=== PATIENT | female | born 1960 | race African-American/Black ===

== ENCOUNTER 2016-08-22 20:13 | Emergency (ER) | payer MEDICAID ==
[~2016-08-22] VITALS: Ht 165.1 cm; Wt 68.0 kg
[2016-08-22] MEDS ORDERED: IPRATROPIUM/ALBUTEROL 0.5-3(2.5)MG/3ML NEB HHN ONE (23:00)
[2016-08-22] MEDS ORDERED: ONDANSETRON 4MG ODT PO PRN (23:00)
[2016-08-22] MEDS ORDERED: PREDNISONE 20MG TABLET PO ONE (23:30)
[2016-08-22] MEDS ORDERED: HYDROCODONE/ACETAMINOPHEN 5/325MG TABLET PO ONE (23:30)
[2016-08-22] MEDS ORDERED: PREDNISONE 20MG TABLET PO NR (23:53)
[2016-08-23 00:38] VITALS: BP 130/65
== END 2016-08-23 00:39 | disposition home or self-care (01) ==
LOC: ER 20:13
DX: J44.1 Chronic obstructive pulmonary disease with (acute) exacerbation (principal); J45.909 Unspecified asthma, uncomplicated; M54.12 Radiculopathy, cervical region; F17.210 Nicotine dependence, cigarettes, uncomplicated; I10 Essential (primary) hypertension; Z98.890 Other specified postprocedural states; Z71.6 Tobacco abuse counseling
CPT/HCPCS: 71020; 94640; 99284; 99406; J7512; Q0162; J7620

== ENCOUNTER 2016-10-10 11:57 | Emergency (ER) | payer MEDICAID ==
[~2016-10-10] VITALS: Ht 165.1 cm; Wt 81.0 kg
[2016-10-10] MEDS ORDERED: ALBUTEROL (0.083%) 2.5MG/3ML NEB HHN STA (13:11)
[2016-10-10] MEDS ORDERED: PREDNISONE 20MG TABLET PO STA (13:11)
[2016-10-10] MEDS ORDERED: IPRATROPIUM BROMIDE (0.02%) 0.5MG/2.5ML NEB HHN STA (13:11)
[2016-10-10 15:01] VITALS: BP 118/73
== END 2016-10-10 15:02 | disposition home or self-care (01) ==
LOC: ER 13:37
DX: J45.901 Unspecified asthma with (acute) exacerbation (principal); R42 Dizziness and giddiness; I10 Essential (primary) hypertension; J98.4 Other disorders of lung; F17.200 Nicotine dependence, unspecified, uncomplicated
CPT/HCPCS: 71010; 94644; 99285; J7512; J7611; Z7610

== ENCOUNTER 2016-10-21 14:11 | Emergency (ER) | payer MEDICAID ==
[~2016-10-21] VITALS: Ht 165.1 cm; Wt 77.0 kg
[2016-10-21] MEDS ORDERED: DIAZEPAM 5 MG TABLET PO ONE (16:00)
[2016-10-21] MEDS ORDERED: HYDROCODONE/ACETAMINOPHEN 5/325MG TABLET PO ONE (16:00)
[2016-10-21 16:53] VITALS: BP 147/89
== END 2016-10-21 16:54 | disposition home or self-care (01) ==
LOC: ER 14:12
DX: M47.9 Spondylosis, unspecified (principal); G89.29 Other chronic pain; M54.9 Dorsalgia, unspecified; J45.909 Unspecified asthma, uncomplicated; I10 Essential (primary) hypertension; F17.210 Nicotine dependence, cigarettes, uncomplicated
CPT/HCPCS: 99283

== ENCOUNTER 2016-11-25 17:51 | Emergency (ER) | payer MEDICAID ==
[~2016-11-25] VITALS: Ht 165.1 cm; Wt 77.0 kg
[2016-11-25] MEDS ORDERED: KETOROLAC 60MG/2ML VIAL IM ONE (18:45)
[2016-11-25] MEDS ORDERED: LORAZEPAM 1MG TABLET PO ONE (21:00)
[2016-11-25 21:50] VITALS: BP 106/61
== END 2016-11-25 21:50 | disposition home or self-care (01) ==
LOC: ER 19:17
DX: M25.561 Pain in right knee (principal); M25.571 Pain in right ankle and joints of right foot; F41.0 Panic disorder [episodic paroxysmal anxiety]; J45.909 Unspecified asthma, uncomplicated; I10 Essential (primary) hypertension; F17.200 Nicotine dependence, unspecified, uncomplicated; Z98.890 Other specified postprocedural states
CPT/HCPCS: 73562; 73610; 73630; 96372; 99284; J1885

== ENCOUNTER 2017-03-17 16:10 | Emergency (ER) | payer MEDICAID ==
[~2017-03-17] VITALS: Ht 175.3 cm; Wt 73.0 kg
[2017-03-17] MEDS ORDERED: PREDNISONE 20MG TABLET PO STA (19:05)
[2017-03-17] MEDS ORDERED: IPRATROPIUM BROMIDE (0.02%) 0.5MG/2.5ML NEB HHN STA (19:05)
[2017-03-17] MEDS ORDERED: ALBUTEROL (0.083%) 2.5MG/3ML NEB HHN STA (19:05)
[2017-03-17] MEDS ORDERED: ACETAMINOPHEN 325MG TABLET PO ONE (19:15)
[2017-03-17 21:27] LABS: EOSINOPHILS % 4.4 % (0.0-5.0); HEMATOCRIT. 39.9 % (36.0-48.0); HEMOGLOBIN. 13.3 g/dL (12.0-16.0); LYMPHOCYTES % 23.1 % (20.0-50.0); MEAN CORPUSCULAR HEMOGLOBIN 32.3 pg (28.0-32.0); MEAN CORPUSCULAR VOLUME 96.6 fL (81.0-99.0); MONOCYTES % 7.2 % (2.0-8.0); NEUTROPHILS % 64.3 % (40.0-76.0); PLATELET 249 x1000/uL (130-400); RED BLOOD CELL COUNT 4.13 mill/uL (4.2-5.4)
[2017-03-17 21:38] LABS: INR 0.9; PROTHROMBIN TIME 9.8 sec (9.4-11.6)
[2017-03-17 21:43] LABS: CARBON DIOXIDE 28 mEq/L (21-32); CHLORIDE 111 mEq/L (98-107); TROPONIN I < 0.02 ng/mL (0.00-0.04)
[2017-03-17 21:49] LABS: CLARITY URINE CLEAR (CLEAR); COLOR URINE YELLOW (YELLOW); GLUCOSE URINE NEGATIVE (NEGATIVE); KETONES URINE NEGATIVE (NEGATIVE); LEUKOCYTE ESTERASE URINE 2+ (NEGATIVE); NITRITE URINE NEGATIVE (NEGATIVE); OCCULT BLOOD URINE NEGATIVE (NEGATIVE); PH URINE 5.5 (4.5-8.0); PROTEIN URINE NEGATIVE (NEGATIVE); SPECIFIC GRAVITY URINE 1.021 (1.005-1.030)
[2017-03-17 22:35] VITALS: BP 122/69
== END 2017-03-17 22:35 | disposition home or self-care (01) ==
LOC: ER 16:22
DX: J45.901 Unspecified asthma with (acute) exacerbation (principal); M25.561 Pain in right knee; M25.562 Pain in left knee; N39.0 Urinary tract infection, site not specified; I51.7 Cardiomegaly; I11.9 Hypertensive heart disease without heart failure; Z98.890 Other specified postprocedural states
CPT/HCPCS: 36415; 71010; 80053; 81001; 83880; 84484; 85025; 85610; 93005; 94640; 99285; J7512; J7611; Z7610

== ENCOUNTER 2019-09-14 14:54 | Emergency (ER) | payer MEDICAID ==
[~2019-09-14] VITALS: Ht 165.1 cm; Wt 62.0 kg
[~2019-09-14 14:54] MED LIST: DULO30CA2 PO; GABA-290 PO; NAPR-681 PO
[2019-09-14] MEDS ORDERED: MORPHINE SULFATE 4 MG/ML CPJ (NOT FOR IM USE) IV STA (18:06)
[2019-09-14] MEDS ORDERED: ONDANSETRON HCL 4MG/2ML INJ IV STA (18:06)
[2019-09-14] MEDS ORDERED: SODIUM CHLORIDE 0.9% 1,000 ML IV ONE (18:06)
[2019-09-14 18:51] LABS: BASOPHILS % 0.5 % (0.0-2.0); EOSINOPHILS % 2.1 % (0.0-5.0); HEMATOCRIT. 44.7 % (36.0-48.0); HEMOGLOBIN. 15.1 g/dL (12.0-16.0); LYMPHOCYTES % 21.7 % (20.0-50.0); MEAN CORPUSCULAR HEMOGLOBIN 32.4 pg (28.0-32.0); MEAN CORPUSCULAR VOLUME 95.7 fL (81.0-99.0); MEAN PLATELET VOLUME 8.2 fl (7.4-10.4); MONOCYTES % 11.5 % (2.0-8.0); NEUTROPHILS % 64.2 % (40.0-76.0); PLATELET 312 x1000/uL (130-400); RED BLOOD CELL COUNT 4.67 mill/uL (4.2-5.4); RED CELL DISTRIBUTION WIDTH 15.7 % (11.6-14.6)
[2019-09-14 18:57] LABS: CHLORIDE 104 mEq/L (98-107)
[2019-09-14 20:19] LABS: CLARITY URINE TURBID (CLEAR); COLOR URINE DK YELLOW (YELLOW); KETONES URINE 1+ (NEGATIVE); LEUKOCYTE ESTERASE URINE TRACE (NEGATIVE); NITRITE URINE NEGATIVE (NEGATIVE); OCCULT BLOOD URINE NEGATIVE (NEGATIVE); PROTEIN URINE NEGATIVE (NEGATIVE); SPECIFIC GRAVITY URINE 1.027 (1.005-1.030)
[2019-09-14] MEDS ORDERED: KETOROLAC 30MG/ML VIAL IV NR (22:00)
[2019-09-14] MEDS ORDERED: MAGNESIUM CITRATE 300ML SOLUTION PO NR (22:00)
[2019-09-14] MEDS ORDERED: CEFTRIAXONE 1 G PREMIX 50 ML IV NR (23:30)
[2019-09-14] MEDS ORDERED: CEFTRIAXONE SODIUM 1 G/VIAL IM ONE (23:30)
[2019-09-15 11:01] VITALS: BP 132/78
== END 2019-09-15 11:08 | disposition home or self-care (01) ==
LOC: ER 14:54
DX: K59.00 Constipation, unspecified (principal); N39.0 Urinary tract infection, site not specified; I10 Essential (primary) hypertension; F98.8 Other specified behavioral and emotional disorders with onset usually occurring in childhood and adolescence; Z96.641 Presence of right artificial hip joint; Z59.0 Homelessness; Z75.1 Person awaiting admission to adequate facility elsewhere
CPT/HCPCS: 36415; 74021; 80053; 81003; 83690; 84484; 85025; 93971; 96361; 96365; 96375; 99285; J0696; J1885; J2270; J2405; J7030

== ENCOUNTER 2019-10-15 09:08 | Emergency (ER) | payer MEDICAID ==
[~2019-10-15] VITALS: Ht 165.1 cm; Wt 60.0 kg
[2019-10-15 10:45] LABS: BASOPHILS % 0.7 % (0.0-2.0); EOSINOPHILS % 2.4 % (0.0-5.0); HEMATOCRIT. 45.7 % (36.0-48.0); HEMOGLOBIN. 15.4 g/dL (12.0-16.0); LYMPHOCYTES % 17.2 % (20.0-50.0); MEAN CORPUSCULAR HEMOGLOBIN 32.6 pg (28.0-32.0); MEAN CORPUSCULAR VOLUME 97.1 fL (81.0-99.0); MONOCYTES % 5.8 % (2.0-8.0); NEUTROPHILS % 73.9 % (40.0-76.0); PLATELET 321 x1000/uL (130-400); RED BLOOD CELL COUNT 4.71 mill/uL (4.2-5.4); RED CELL DISTRIBUTION WIDTH 15.5 % (11.6-14.6)
[2019-10-15] MEDS ORDERED: OXYCODONE HCL/ACETAMINOPHEN 5/325MG TABLET PO ONE (10:45)
[2019-10-15 10:51] LABS: CHLORIDE 104 mEq/L (98-107)
[2019-10-15 11:27] VITALS: BP 128/82
== END 2019-10-15 11:48 | disposition home or self-care (01) ==
LOC: ER 09:08
DX: G89.29 Other chronic pain (principal); M79.661 Pain in right lower leg; E11.9 Type 2 diabetes mellitus without complications; I10 Essential (primary) hypertension; Z96.649 Presence of unspecified artificial hip joint
CPT/HCPCS: 36415; 71045; 80053; 85025; 93005; 99285

== ENCOUNTER 2020-05-27 21:32 | Inpatient (IN) | payer MEDICAID, OTHER ==
[~2020-05-27] VITALS: Ht 165.1 cm; Wt 61.2 kg
[2020-05-27] MEDS ORDERED: NITROGLYCERIN 0.4MG TABLET SL SL PRN (23:00)
[2020-05-27] MEDS ORDERED: ASPIRIN 81MG TABLET PO ONE (23:00)
[2020-05-28 00:47] LABS: BASOPHILS % 0.5 % (0.0-2.0); CHLORIDE 109 mEq/L (98-107); EOSINOPHILS % 3.1 % (0.0-5.0); HEMATOCRIT. 43.2 % (36.0-48.0); HEMOGLOBIN. 14.4 g/dL (12.0-16.0); LYMPHOCYTES % 12.2 % (20.0-50.0); MEAN CORPUSCULAR HEMOGLOBIN 32.4 pg (28.0-32.0); MEAN CORPUSCULAR VOLUME 97.1 fL (81.0-99.0); MEAN PLATELET VOLUME 8.5 fl (7.4-10.4); MONOCYTES % 8.7 % (2.0-8.0); NEUTROPHILS % 75.5 % (40.0-76.0); PLATELET 286 x1000/uL (130-400); RED BLOOD CELL COUNT 4.45 mill/uL (4.2-5.4); RED CELL DISTRIBUTION WIDTH 15.5 % (11.6-14.6)
[2020-05-28 00:55] LABS: D-DIMER 0.76 mg/L FEU (<0.50); PARTIAL THROMBOPLASTIN TIME 25.7 sec (23.4-31.0); PROTHROMBIN TIME 10.1 sec (9.6-11.0)
[2020-05-28] MEDS ORDERED: ASPIRIN 81MG TABLET ONE (02:31)
[2020-05-28] MEDS ORDERED: IOHEXOL-350 100 ML BOTTLE ONE (05:34)
[2020-05-28] MEDS ORDERED: ONDANSETRON HCL 4MG/2ML INJ IV PRN (10:30)
[2020-05-28] MEDS ORDERED: ACETAMINOPHEN 325MG TABLET PO PRN (10:30)
[2020-05-28 11:44] VITALS: BP 144/70
[2020-05-28 12:00] VITALS: BP 140/70
[2020-05-28 14:00] VITALS: BP 156/65
[2020-05-28 16:00] VITALS: BP 143/80
[2020-05-28 16:23] LABS: LDL CHOLESTEROL 58 mg/dL (5-100)
[2020-05-28 16:25] LABS: HDL CHOLESTEROL 60 mg/dL (40-59)
[2020-05-28] MEDS: KETOROLAC 15MG/ML VIAL IV PRN (17:02)
[2020-05-28 18:00] VITALS: BP 160/82
[2020-05-28 20:00] VITALS: BP 138/65
[2020-05-29] VITALS (8 sets, daily range): BP systolic 109–147; BP diastolic 63–81
[2020-05-29 00:17] LABS: CLARITY URINE CLEAR (CLEAR); COLOR URINE DARK YELLOW (YELLOW); KETONES URINE TRACE (NEGATIVE); LEUKOCYTE ESTERASE URINE NEGATIVE (NEGATIVE); NITRITE URINE NEGATIVE (NEGATIVE); OCCULT BLOOD URINE NEGATIVE (NEGATIVE); PROTEIN URINE TRACE (NEGATIVE); SPECIFIC GRAVITY URINE 1.037 (1.005-1.030)
[2020-05-29 00:33] LABS: *BARBITURATES SCREEN URINE NEGATIVE (NEGATIVE); *BENZODIAZEPINES SCREEN URINE NEGATIVE (NEGATIVE)
[2020-05-29 00:34] LABS: *AMPHETAMINES SCREEN URINE NEGATIVE (NEGATIVE); *COCAINE SCREEN URINE PRESUMTIVE POSITIVE (NEGATIVE); CANNABINOID URINE SCREEN PRESUMTIVE POSITIVE (NEGATIVE); METHADONE URINE SCREEN NEGATIVE (NEGATIVE); OPIATES URINE SCREEN NEGATIVE (NEGATIVE); PHENCYCLIDINE URINE SCREEN NEGATIVE (NEGATIVE)
[2020-05-29] MEDS: KETOROLAC 15MG/ML VIAL IV PRN (01:53)
[2020-05-29] MEDS: TRAMADOL 50MG TABLET PO PRN ×3 (07:44→23:32)
[2020-05-29] MEDS: ASPIRIN 81MG TABLET PO SCH (08:21)
[2020-05-29] MEDS: IPRATROPIUM/ALBUTEROL 0.5-3(2.5)MG/3ML NEB HHN SCH ×3 (08:46→21:31)
[2020-05-30 02:00] VITALS: BP 153/72
[2020-05-30] MEDS: IPRATROPIUM/ALBUTEROL 0.5-3(2.5)MG/3ML NEB HHN SCH ×4 (02:52→20:50)
[2020-05-30 04:00] VITALS: BP 122/67
[2020-05-30 08:00] VITALS: BP 122/70
[2020-05-30] MEDS: ASPIRIN 81MG TABLET PO SCH (09:29)
[2020-05-30 12:00] VITALS: BP 135/82
[2020-05-30 16:00] VITALS: BP 136/59
[2020-05-30 20:00] VITALS: BP 128/67
[2020-05-31] VITALS: BP 135/58
[2020-05-31] MEDS: IPRATROPIUM/ALBUTEROL 0.5-3(2.5)MG/3ML NEB HHN SCH ×4 (02:23→20:49)
[2020-05-31] MEDS: TRAMADOL 50MG TABLET PO PRN (03:23)
[2020-05-31 04:00] VITALS: BP 129/73
[2020-05-31 08:00] VITALS: BP 140/70
[2020-05-31] MEDS: ASPIRIN 81MG TABLET PO SCH (09:10)
[2020-05-31 12:00] VITALS: BP_SYST 128; BP_SYST 138; BP_DIAS 62; BP_DIAS 89
[2020-05-31 16:00] VITALS: BP 128/62
[2020-05-31] MEDS: LORAZEPAM 2MG/ML CPJ IV PRN (17:34)
[2020-05-31 18:15] LABS: *AMPHETAMINES SCREEN URINE NEGATIVE (NEGATIVE); *BARBITURATES SCREEN URINE NEGATIVE (NEGATIVE); *BENZODIAZEPINES SCREEN URINE NEGATIVE (NEGATIVE); *COCAINE SCREEN URINE NEGATIVE (NEGATIVE); METHADONE URINE SCREEN NEGATIVE (NEGATIVE)
[2020-05-31 18:16] LABS: CANNABINOID URINE SCREEN NEGATIVE (NEGATIVE); PHENCYCLIDINE URINE SCREEN NEGATIVE (NEGATIVE)
[2020-05-31 18:25] LABS: OPIATES URINE SCREEN NEGATIVE (NEGATIVE)
[2020-05-31 20:00] VITALS: BP 108/62
[2020-06-01] VITALS: BP 121/65
[2020-06-01] MEDS: IPRATROPIUM/ALBUTEROL 0.5-3(2.5)MG/3ML NEB HHN SCH ×4 (01:19→21:13)
[2020-06-01 04:00] VITALS: BP 105/65
[2020-06-01 08:00] VITALS: BP 121/68
[2020-06-01] MEDS: ASPIRIN 81MG TABLET PO SCH (08:41)
[2020-06-01] MEDS: LORAZEPAM 2MG/ML CPJ IV PRN ×3 (08:41→19:48)
[2020-06-01 12:00] VITALS: BP 124/75
[2020-06-01 16:00] VITALS: BP 116/68
[2020-06-01 21:17] VITALS: BP 109/73
[2020-06-01] MEDS: HALOPERIDOL LACTATE 5MG/ML VIAL IM PRN (22:11)
[2020-06-02] VITALS: BP_SYST 108; BP_SYST 153; BP_DIAS 63; BP_DIAS 86
[2020-06-02] MEDS: IPRATROPIUM/ALBUTEROL 0.5-3(2.5)MG/3ML NEB HHN SCH ×3 (02:09→14:40)
[2020-06-02 04:00] VITALS: BP 120/66
[2020-06-02 08:00] VITALS: BP 98/50
[2020-06-02] MEDS: HALOPERIDOL LACTATE 5MG/ML VIAL IM PRN (08:43)
[2020-06-02] MEDS: ASPIRIN 81MG TABLET PO SCH (08:43)
[2020-06-02] MEDS: LORAZEPAM 2MG/ML CPJ IV PRN ×2 (11:21→16:02)
[2020-06-02] MEDS ORDERED: ALBU18HF2 IH (12:57)
[2020-06-02] MEDS ORDERED: FLUT1DIS3 INH (12:58)
[2020-06-02 19:56] LABS: LDL CHOLESTEROL 70 mg/dL (5-100)
[2020-06-02 19:58] LABS: HDL CHOLESTEROL 59 mg/dL (40-59)
[2020-06-02 19:59] LABS: T4 FREE 0.82 ng/dL (0.76-1.46)
[2020-06-02 20:00] VITALS: BP 125/70
[2020-06-03] VITALS: BP 125/70
[2020-06-03 04:00] VITALS: BP 105/70
[2020-06-03 08:00] VITALS: BP 113/68
[2020-06-03] MEDS: ASPIRIN 81MG TABLET PO SCH (08:11)
[2020-06-03] MEDS: IPRATROPIUM/ALBUTEROL 0.5-3(2.5)MG/3ML NEB HHN SCH ×2 (08:12→14:10)
[2020-06-03] MEDS: LORAZEPAM 2MG/ML CPJ IV PRN ×2 (08:32→13:30)
[2020-06-03 12:00] VITALS: BP 134/77
[2020-06-03 16:00] VITALS: BP 102/63
== END 2020-06-03 18:00 | disposition left against medical advice (07) | DRG 203 ==
LOC: ER 21:32 → 5EST 05-28 01:23 → CANRESERV 05-28 07:56 → ENRESERV 05-28 07:56 → 6EST 05-30 13:13
PROVIDERS: ADMIT Internal Medicine; ATTEND Internal Medicine
DX: M94.0 Chondrocostal junction syndrome [Tietze] (principal); E87.8 Other disorders of electrolyte and fluid balance, not elsewhere classified; I10 Essential (primary) hypertension; E11.9 Type 2 diabetes mellitus without complications; F12.90 Cannabis use, unspecified, uncomplicated; Z96.649 Presence of unspecified artificial hip joint; F17.210 Nicotine dependence, cigarettes, uncomplicated; F14.90 Cocaine use, unspecified, uncomplicated; J43.8 Other emphysema; F10.10 Alcohol abuse, uncomplicated; Y90.9 Presence of alcohol in blood, level not specified; Z99.3 Dependence on wheelchair; Z71.6 Tobacco abuse counseling; Z86.73 Personal history of transient ischemic attack (TIA), and cerebral infarction without residual deficits; Z79.1 Long term (current) use of non-steroidal anti-inflammatories (NSAID); Z79.899 Other long term (current) drug therapy
CPT/HCPCS: 36415; 71045; 71275; 80053; 80061; 80305; 81003; 83036; 83880; 84439; 84443; 84484; 85025; 85379; 93005; 93306; 93970; 97116; 97162; 97530; 99285; C1893; J1630; J1885; J2060; Q9967

== ENCOUNTER 2020-07-22 22:08 | Inpatient (IN) | payer OTHER ==
[~2020-07-22] VITALS: Ht 165.1 cm; Wt 63.5 kg
[~2020-07-22 22:08] MED LIST changes: +ALBU18HF2 IH; +FLUT1DIS3 INH
[2020-07-22] MEDS ORDERED: MORPHINE SULFATE 4 MG/ML CPJ (NOT FOR IM USE) IV ONE (23:15)
[2020-07-22] MEDS ORDERED: ONDANSETRON HCL 4MG/2ML INJ IV ONE (23:15)
[2020-07-22] MEDS ORDERED: SODIUM CHLORIDE 0.9% 1,000 ML IV ONE (23:15)
[2020-07-22 23:30] LABS: BASOPHILS % 0.7 % (0.0-2.0); EOSINOPHILS % 3.1 % (0.0-5.0); HEMATOCRIT. 43.9 % (36.0-48.0); HEMOGLOBIN. 14.8 g/dL (12.0-16.0); LYMPHOCYTES % 18.7 % (20.0-50.0); MEAN CORPUSCULAR HEMOGLOBIN 33.4 pg (28.0-32.0); MEAN CORPUSCULAR VOLUME 99.1 fL (81.0-99.0); MEAN PLATELET VOLUME 8.3 fl (7.4-10.4); MONOCYTES % 7.8 % (2.0-8.0); NEUTROPHILS % 69.7 % (40.0-76.0); PLATELET 220 x1000/uL (130-400); RED BLOOD CELL COUNT 4.43 mill/uL (4.2-5.4); RED CELL DISTRIBUTION WIDTH 14.3 % (11.6-14.6)
[2020-07-22 23:38] LABS: CHLORIDE 112 mEq/L (98-107)
[2020-07-22] MEDS ORDERED: DOXYCYCLINE HYCLATE 100MG CAPSULE PO ONE (23:45)
[2020-07-22] MEDS ORDERED: CEFTRIAXONE SODIUM 500 MG/VIAL IM ONE (23:45)
[2020-07-23] MEDS ORDERED: DIPHENHYDRAMINE 50MG/ML VIAL IV ONE
[2020-07-23 01:27] LABS: CLARITY URINE CLEAR (CLEAR); COLOR URINE YELLOW (YELLOW); KETONES URINE NEGATIVE (NEGATIVE); LEUKOCYTE ESTERASE URINE NEGATIVE (NEGATIVE); NITRITE URINE NEGATIVE (NEGATIVE); OCCULT BLOOD URINE NEGATIVE (NEGATIVE); PH URINE 6.5 (4.5-8.0); PROTEIN URINE NEGATIVE (NEGATIVE); SPECIFIC GRAVITY URINE 1.031 (1.005-1.030)
[2020-07-23] MEDS ORDERED: ONDANSETRON HCL 4MG/2ML INJ IV PRN (08:15)
[2020-07-23 09:00] VITALS: BP 137/80
[2020-07-23 12:00] VITALS: BP_SYST 128; BP_SYST 158; BP_DIAS 72; BP_DIAS 75
[2020-07-23 12:27] VITALS: BP 158/75
[2020-07-23 16:00] VITALS: BP 131/71
[2020-07-23] MEDS ORDERED: IPRATROPIUM/ALBUTEROL 0.5-3(2.5)MG/3ML NEB HHN PRN (19:30)
[2020-07-23 20:00] VITALS: BP 155/63
[2020-07-23] MEDS: CLOTRIMAZOLE 1% VAGINAL CREAM 45GM VG SCH (20:23)
[2020-07-24 01:30] VITALS: BP 124/68
[2020-07-24 04:00] VITALS: BP 152/65
[2020-07-24 08:00] VITALS: BP 156/78
[2020-07-24 12:00] VITALS: BP 160/80
[2020-07-24] MEDS ORDERED: CLONIDINE 0.1MG TABLET PO PRN (12:45)
[2020-07-24] MEDS: METRONIDAZOLE 500MG TABLET PO SCH ×2 (13:19→21:34)
[2020-07-24 16:00] VITALS: BP 122/74
[2020-07-24 20:00] VITALS: BP 146/67
[2020-07-24] MEDS: CLOTRIMAZOLE 1% VAGINAL CREAM 45GM VG SCH (21:38)
[2020-07-24] MEDS: ACETAMINOPHEN 325MG TABLET PO PRN (21:38)
[2020-07-25] VITALS: BP 127/76
[2020-07-25] MEDS: GABAPENTIN 300MG CAPSULE PO SCH ×4 (02:50→20:34)
[2020-07-25 04:00] VITALS: BP 130/70
[2020-07-25 08:00] VITALS: BP 135/71
[2020-07-25] MEDS: DULOXETINE HCL 30MG DR CAPSULE PO SCH (09:15)
[2020-07-25] MEDS: METRONIDAZOLE 500MG TABLET PO SCH ×2 (09:15→20:34)
[2020-07-25 12:00] VITALS: BP 130/76
[2020-07-25 16:00] VITALS: BP 140/73
[2020-07-25 20:00] VITALS: BP 144/82
[2020-07-25] MEDS: CLOTRIMAZOLE 1% VAGINAL CREAM 45GM VG SCH (20:35)
[2020-07-26] VITALS: BP 140/80
[2020-07-26 04:07] LABS: NEISSERIA GONORRHOEAE NAA Negative (Negative)
[2020-07-26 08:00] VITALS: BP 140/81
[2020-07-26] MEDS: DULOXETINE HCL 30MG DR CAPSULE PO SCH (08:40)
[2020-07-26] MEDS: GABAPENTIN 300MG CAPSULE PO SCH ×3 (08:41→21:59)
[2020-07-26] MEDS: METRONIDAZOLE 500MG TABLET PO SCH ×2 (08:41→21:59)
[2020-07-26 12:00] VITALS: BP 138/78
[2020-07-26 16:00] VITALS: BP 133/78
[2020-07-26 20:00] VITALS: BP 150/75
[2020-07-26] MEDS: CLOTRIMAZOLE 1% VAGINAL CREAM 45GM VG SCH (21:59)
[2020-07-27] VITALS: BP 142/68
[2020-07-27] MEDS: GABAPENTIN 300MG CAPSULE PO SCH ×4 (03:13→21:37)
[2020-07-27 04:00] VITALS: BP 135/72
[2020-07-27] MEDS: METRONIDAZOLE 500MG TABLET PO SCH ×2 (10:50→21:37)
[2020-07-27] MEDS: DULOXETINE HCL 30MG DR CAPSULE PO SCH (10:50)
[2020-07-27 17:08] VITALS: BP 139/71
[2020-07-27 20:00] VITALS: BP 134/64
[2020-07-27] MEDS: CLOTRIMAZOLE 1% VAGINAL CREAM 45GM VG SCH (21:38)
[2020-07-27] MEDS: ACETAMINOPHEN 325MG TABLET PO PRN (21:38)
[2020-07-28] VITALS: BP 116/65
[2020-07-28] MEDS: GABAPENTIN 300MG CAPSULE PO SCH ×4 (03:22→21:12)
[2020-07-28 04:00] VITALS: BP 132/75
[2020-07-28 08:00] VITALS: BP 138/82
[2020-07-28] MEDS: METRONIDAZOLE 500MG TABLET PO SCH ×2 (08:35→21:12)
[2020-07-28] MEDS: DULOXETINE HCL 30MG DR CAPSULE PO SCH (08:35)
[2020-07-28 12:00] VITALS: BP 147/89
[2020-07-28 16:00] VITALS: BP 129/70
[2020-07-28 20:00] VITALS: BP 149/76
[2020-07-28] MEDS: CLOTRIMAZOLE 1% VAGINAL CREAM 45GM VG SCH (21:13)
[2020-07-28] MEDS: ACETAMINOPHEN 325MG TABLET PO PRN (21:23)
[2020-07-29] MEDS: GABAPENTIN 300MG CAPSULE PO SCH ×4 (03:00→22:17)
[2020-07-29 08:00] VITALS: BP 139/83
[2020-07-29] MEDS: METRONIDAZOLE 500MG TABLET PO SCH (08:57)
[2020-07-29] MEDS: DULOXETINE HCL 30MG DR CAPSULE PO SCH (08:57)
[2020-07-29] MEDS ORDERED: LIDOCAINE HCL 1% 20ML VIAL (Pyxis) INJ INFIL SCH (10:00)
[2020-07-29 12:00] VITALS: BP 140/78
[2020-07-29 16:00] VITALS: BP 127/72
[2020-07-29] MEDS: CLOTRIMAZOLE 1% VAGINAL CREAM 45GM VG SCH (22:18)
[2020-07-30] MEDS: GABAPENTIN 300MG CAPSULE PO SCH ×4 (03:00→21:31)
[2020-07-30 08:00] VITALS: BP 144/78
[2020-07-30] MEDS: DULOXETINE HCL 30MG DR CAPSULE PO SCH (08:39)
[2020-07-30 12:00] VITALS: BP 115/65
[2020-07-30 16:00] VITALS: BP 138/73
[2020-07-30 20:00] VITALS: BP 132/70
[2020-07-31] VITALS: BP 128/64
[2020-07-31] MEDS: GABAPENTIN 300MG CAPSULE PO SCH ×2 (03:47→09:23)
[2020-07-31 04:00] VITALS: BP 136/74
[2020-07-31 07:52] VITALS: BP 121/68
[2020-07-31 08:02] VITALS: BP 121/68
[2020-07-31] MEDS: DULOXETINE HCL 30MG DR CAPSULE PO SCH (09:23)
== END 2020-07-31 11:20 | disposition home or self-care (01) | DRG 951 ==
LOC: ER 22:08 → 6EST 07-23 00:33 → EDBEDREQ 07-23 00:55 → EDBEDREQTM 07-23 00:55 → ENRESERV 07-23 09:09
PROVIDERS: ADMIT Internal Medicine; ATTEND Internal Medicine
PROC: 0KCV0ZZ Extirpation of Matter from Right Foot Muscle, Open Approach (ICD-10-PCS; principal; 2020-07-29)
DX: K85.90 Acute pancreatitis without necrosis or infection, unspecified (principal); W45.8XXA Other foreign body or object entering through skin, initial encounter; E87.8 Other disorders of electrolyte and fluid balance, not elsewhere classified; T19.2XXA Foreign body in vulva and vagina, initial encounter; J44.9 Chronic obstructive pulmonary disease, unspecified; F12.90 Cannabis use, unspecified, uncomplicated; F17.210 Nicotine dependence, cigarettes, uncomplicated; B37.3 Candidiasis of vulva and vagina; M48.00 Spinal stenosis, site unspecified; Z96.649 Presence of unspecified artificial hip joint; R26.89 Other abnormalities of gait and mobility; L85.9 Epidermal thickening, unspecified; X58.XXXA Exposure to other specified factors, initial encounter; Z99.3 Dependence on wheelchair; Z71.6 Tobacco abuse counseling; Z59.0 Homelessness; Y93.89 Activity, other specified; Y92.89 Other specified places as the place of occurrence of the external cause; Y99.8 Other external cause status
CPT/HCPCS: 36415; 71045; 73630; 74176; 80053; 81003; 85025; 87070; 87075; 87077; 87186; 87210; 87491; 87591; 93005; 97116; 97162; 97530; 99285; J0696; J1200; J2270; J2405; J3490; J7030; U0003

== ENCOUNTER 2020-10-14 13:03 | Emergency (ER) | payer MEDICAID, OTHER ==
[~2020-10-14] VITALS: Ht 165.1 cm; Wt 73.0 kg
[2020-10-14] MEDS ORDERED: ACETAMINOPHEN 500MG TABLET PO ONE (14:00)
[2020-10-14 14:40] LABS: CLARITY URINE CLEAR (CLEAR); COLOR URINE YELLOW (YELLOW); KETONES URINE TRACE (NEGATIVE); LEUKOCYTE ESTERASE URINE NEGATIVE (NEGATIVE); NITRITE URINE NEGATIVE (NEGATIVE); OCCULT BLOOD URINE NEGATIVE (NEGATIVE); PROTEIN URINE TRACE (NEGATIVE); SPECIFIC GRAVITY URINE 1.024 (1.005-1.030)
[2020-10-14] MEDS ORDERED: DOXY100C2 MT (14:53)
[2020-10-14] MEDS ORDERED: ACET-2708 MT (14:53)
[2020-10-14] MEDS ORDERED: METR500T MT (14:53)
[2020-10-14] MEDS ORDERED: DOXYCYCLINE HYCLATE 100MG CAPSULE PO ONE (15:00)
[2020-10-14] MEDS ORDERED: CEFTRIAXONE SODIUM 500 MG/VIAL IM ONE (15:00)
[2020-10-14 15:27] VITALS: BP 153/84
[2020-10-17 04:07] LABS: NEISSERIA GONORRHOEAE NAA Negative (Negative)
== END 2020-10-14 15:28 | disposition home or self-care (01) ==
LOC: ER 13:03
DX: N76.0 Acute vaginitis (principal); F12.10 Cannabis abuse, uncomplicated; J45.909 Unspecified asthma, uncomplicated; I10 Essential (primary) hypertension; Z79.899 Other long term (current) drug therapy; Z96.649 Presence of unspecified artificial hip joint
CPT/HCPCS: 81003; 87210; 87491; 87591; 96372; 99283; J0696; Z7610

== ENCOUNTER 2021-02-27 03:53 | Emergency (ER) | payer MEDICAID ==
[~2021-02-27] VITALS: Ht 165.1 cm; Wt 75.0 kg
[~2021-02-27 03:53] MED LIST changes: +ACET-2708 MT; +DOXY100C2 MT; +LACT1CAP77 PO; +METR-167 PO; -NAPR-681 PO
[2021-02-27] MEDS ORDERED: IBUPROFEN 600MG TABLET PO STA (05:03)
[2021-02-27 05:39] VITALS: BP 137/72
[2021-02-27] MEDS ORDERED: P50 PO (05:39)
[2021-02-27] MEDS ORDERED: ACET-2708 PO (05:39)
[2021-02-27] MEDS ORDERED: DIPH25CA83 PO (05:39)
[2021-02-27] MEDS ORDERED: HYDR-4622 TP (05:39)
[2021-02-27] MEDS ORDERED: AZIT250T12 MT (05:39)
== END 2021-02-27 06:23 | disposition home or self-care (01) ==
LOC: ER 04:48
DX: R05 Cough (principal); R43.9 Unspecified disturbances of smell and taste; J45.909 Unspecified asthma, uncomplicated; I10 Essential (primary) hypertension; Z20.822 Contact with and (suspected) exposure to COVID-19
CPT/HCPCS: 71045; 99283

== ENCOUNTER 2021-05-19 21:05 | Emergency (ER) | payer MEDICAID, OTHER ==
[~2021-05-19] VITALS: Ht 165.1 cm; Wt 73.0 kg
[~2021-05-19 21:05] MED LIST changes: +ACET-2708 PO; +AZIT250T12 MT; +DIPH25CA83 PO; -DOXY100C2 MT; +DOXY100C5 MT; +HYDR-4622 TP; +P50 PO
[2021-05-19] MEDS ORDERED: IBUPROFEN 400MG TABLET PO ONE (22:15)
[2021-05-19] MEDS ORDERED: ACETAMINOPHEN 325MG TABLET PO ONE (22:15)
[2021-05-19] MEDS ORDERED: LIDOCAINE 5% PATCH TOP SCH (22:15)
[2021-05-19] MEDS ORDERED: ACETAMINOPHEN 325MG TABLET PO NR (22:30)
[2021-05-19] MEDS ORDERED: IBUPROFEN 400MG TABLET PO NR (22:30)
[2021-05-20 05:37] VITALS: BP 107/60
== END 2021-05-20 08:32 | disposition home or self-care (01) ==
LOC: ER 21:05
DX: G89.29 Other chronic pain (principal); M54.9 Dorsalgia, unspecified; I10 Essential (primary) hypertension; Z59.00 Homelessness unspecified; Z79.899 Other long term (current) drug therapy
CPT/HCPCS: 99283

== ENCOUNTER 2021-05-25 10:23 | Inpatient (IN) | payer OTHER ==
[~2021-05-25] VITALS: Ht 170.2 cm; Wt 55.3 kg
[2021-05-25] MEDS ORDERED: SODIUM CHLORIDE 0.9% 1,000 ML IV ONE (11:00)
[2021-05-25 11:18] LABS: CHLORIDE 105 mEq/L (98-107)
[2021-05-25 11:21] LABS: BASOPHILS % 0.5 % (0.0-2.0); EOSINOPHILS % 1.3 % (0.0-5.0); HEMATOCRIT. 40.9 % (36.0-48.0); HEMOGLOBIN. 13.8 g/dL (12.0-16.0); LYMPHOCYTES % 10.5 % (20.0-50.0); MEAN CORPUSCULAR HEMOGLOBIN 33.3 pg (28.0-32.0); MEAN CORPUSCULAR VOLUME 98.9 fL (81.0-99.0); MONOCYTES % 9.7 % (2.0-8.0); PLATELET 399 x1000/uL (130-400); RED BLOOD CELL COUNT 4.13 mill/uL (4.2-5.4)
[2021-05-25 12:05] LABS: CLARITY URINE CLEAR (CLEAR); COLOR URINE YELLOW (YELLOW); KETONES URINE TRACE (NEGATIVE); LEUKOCYTE ESTERASE URINE NEGATIVE (NEGATIVE); NITRITE URINE NEGATIVE (NEGATIVE); OCCULT BLOOD URINE NEGATIVE (NEGATIVE); PROTEIN URINE TRACE (NEGATIVE); SPECIFIC GRAVITY URINE 1.018 (1.005-1.030)
[2021-05-25] MEDS ORDERED: DEXTROSE 50% WATER 50ML SYRINGE IV ONE (12:30)
[2021-05-25] MEDS ORDERED: SODIUM POLYSTYRENE SULFONATE 15 G/60 ML BOT PO ONE (12:30)
[2021-05-25] MEDS ORDERED: ALBUTEROL (0.083%) 2.5MG/3ML NEB HHN ONE (12:30)
[2021-05-25] MEDS ORDERED: INSULIN REGULAR (HUMULIN R) 300UNITS/3ML VIAL IV ONE (12:30)
[2021-05-25] MEDS ORDERED: CEFTRIAXONE 1 G PREMIX 50 ML IV ONE (13:00)
[2021-05-25] MEDS: AZITHROMYCIN 500 MG in DEXT 5% WATER 250 ML IV SCH (13:00)
[2021-05-25 22:42] VITALS: BP 141/75
[2021-05-26] MEDS ORDERED: DEXTROSE 50% WATER 50ML SYRINGE IV PRN (00:15)
[2021-05-26] MEDS ORDERED: NALOXONE HCL 0.4MG/ML VIAL IV PRN (00:30)
[2021-05-26] MEDS: PHENYTOIN SODIUM EXTENDED 100MG CAPSULE PO SCH ×3 (01:02→17:19)
[2021-05-26] MEDS: HYDROCODONE/ACETAMINOPHEN 5/325MG TABLET PO PRN ×3 (01:02→21:43)
[2021-05-26] MEDS ORDERED: PHEN100C4 MT (01:19)
[2021-05-26] MEDS ORDERED: GABA-532 MT (01:19)
[2021-05-26 06:36] LABS: BASOPHILS % 0.6 % (0.0-2.0); HEMATOCRIT. 36.1 % (36.0-48.0); LYMPHOCYTES % 19.7 % (20.0-50.0); MEAN CORPUSCULAR HEMOGLOBIN 33.3 pg (28.0-32.0); MEAN CORPUSCULAR VOLUME 100.1 fL (81.0-99.0); MEAN PLATELET VOLUME 9.1 fl (7.4-10.4); MONOCYTES % 13.1 % (2.0-8.0); NEUTROPHILS % 65.6 % (40.0-76.0); PLATELET 283 x1000/uL (130-400); RED BLOOD CELL COUNT 3.61 mill/uL (4.2-5.4); RED CELL DISTRIBUTION WIDTH 13.3 % (11.6-14.6)
[2021-05-26 07:09] LABS: CHLORIDE 109 mEq/L (98-107)
[2021-05-26 07:46] LABS: HDL CHOLESTEROL 60 mg/dL (40-59); LDL CHOLESTEROL 57 mg/dL (5-100)
[2021-05-26] MEDS: INSULIN LISPRO 100 UNITS/ML SUBCUT SCH ×4 (07:50→21:00)
[2021-05-26 08:00] VITALS: BP 169/90
[2021-05-26] MEDS: BLOOD SUGAR DIAGNOSTIC STRIP TEST SCH ×4 (08:14→21:00)
[2021-05-26] MEDS ORDERED: ASPIRIN 81MG TABLET PO SCH (09:00)
[2021-05-26 09:35] LABS: *AMPHETAMINES SCREEN URINE PRESUMTIVE POSITIVE (NEGATIVE); *BARBITURATES SCREEN URINE NEGATIVE (NEGATIVE); *BENZODIAZEPINES SCREEN URINE NEGATIVE (NEGATIVE); *COCAINE SCREEN URINE PRESUMTIVE POSITIVE (NEGATIVE); METHADONE URINE SCREEN NEGATIVE (NEGATIVE); OPIATES URINE SCREEN NEGATIVE (NEGATIVE)
[2021-05-26 09:36] LABS: CANNABINOID URINE SCREEN NEGATIVE (NEGATIVE); PHENCYCLIDINE URINE SCREEN NEGATIVE (NEGATIVE)
[2021-05-26] MEDS: GABAPENTIN 300MG CAPSULE PO SCH ×3 (09:54→17:19)
[2021-05-26] MEDS: AMLODIPINE 10MG TABLET PO SCH (09:55)
[2021-05-26] MEDS: CEFTRIAXONE 1,000 MG in DEXTROSE 5% WATER 50 ML IV SCH (10:05)
[2021-05-26] MEDS ORDERED: KETOROLAC 30MG/ML VIAL IV PRN (11:30)
[2021-05-26 12:00] VITALS: BP 150/73
[2021-05-26] MEDS: AZITHROMYCIN 500 MG in DEXT 5% WATER 250 ML IV SCH (13:43)
[2021-05-26 15:00] LABS: PROTHROMBIN TIME 10.3 sec (9.6-11.0)
[2021-05-26 16:00] VITALS: BP 160/87
[2021-05-26] MEDS: LOSARTAN POTASSIUM 100 MG TABLET PO SCH (17:19)
[2021-05-26 20:00] VITALS: BP 123/77
[2021-05-27 04:00] VITALS: BP 148/66
[2021-05-27] MEDS: HYDROCODONE/ACETAMINOPHEN 5/325MG TABLET PO PRN ×2 (05:19→09:10)
[2021-05-27] MEDS: BLOOD SUGAR DIAGNOSTIC STRIP TEST SCH (07:44)
[2021-05-27] MEDS: INSULIN LISPRO 100 UNITS/ML SUBCUT SCH (07:50)
[2021-05-27] MEDS ORDERED: GADOTERATE MEGLUMINE 5 MMOL/10 ML VIAL IV ONE (07:54)
[2021-05-27 08:00] VITALS: BP 156/81
[2021-05-27] MEDS: PHENYTOIN SODIUM EXTENDED 100MG CAPSULE PO SCH ×2 (09:03→18:05)
[2021-05-27] MEDS: GABAPENTIN 300MG CAPSULE PO SCH ×3 (09:03→18:05)
[2021-05-27] MEDS: AMLODIPINE 10MG TABLET PO SCH (09:04)
[2021-05-27] MEDS: CEFTRIAXONE 1,000 MG in DEXTROSE 5% WATER 50 ML IV SCH (09:04)
[2021-05-27] MEDS: LOSARTAN POTASSIUM 100 MG TABLET PO SCH (09:04)
[2021-05-27 13:06] VITALS: BP 144/84
[2021-05-27] MEDS: DEXAMETHASONE 4MG/ML 1ML VIAL IV SCH ×2 (13:07→18:05)
[2021-05-27 16:00] VITALS: BP 136/79
[2021-05-27] MEDS: MORPHINE SULFATE 2 MG/ML CPJ (NOT FOR IM USE) IV PRN (18:11)
[2021-05-27] MEDS ORDERED: IPRATROPIUM/ALBUTEROL 0.5-3(2.5)MG/3ML NEB HHN PRN (18:45)
[2021-05-27 20:00] VITALS: BP 138/75
[2021-05-28] VITALS: BP 129/78
[2021-05-28] MEDS: DEXAMETHASONE 4MG/ML 1ML VIAL IV SCH ×3 (00:23→12:00)
[2021-05-28] MEDS: MORPHINE SULFATE 2 MG/ML CPJ (NOT FOR IM USE) IV PRN (03:18)
[2021-05-28 04:00] VITALS: BP 135/78
[2021-05-28 08:00] VITALS: BP 154/89
[2021-05-28] MEDS: LOSARTAN POTASSIUM 100 MG TABLET PO SCH (08:13)
[2021-05-28] MEDS: AMLODIPINE 10MG TABLET PO SCH (08:13)
[2021-05-28] MEDS: GABAPENTIN 300MG CAPSULE PO SCH (08:13)
[2021-05-28] MEDS: PHENYTOIN SODIUM EXTENDED 100MG CAPSULE PO SCH (08:13)
[2021-05-28] MEDS: CEFTRIAXONE 1,000 MG in DEXTROSE 5% WATER 50 ML IV SCH (09:23)
[2021-05-28] MEDS ORDERED: DEXT 5%/LACTATED RINGERS 1,000 ML IV SCH (09:30)
== END 2021-05-28 12:38 | disposition left against medical advice (07) | DRG 347 ==
LOC: ER 10:23 → 6EST 14:48 → EDBEDREQTM 15:08 → EDBEDREQ 15:08 → ENRESERV 20:33
PROVIDERS: ADMIT Internal Medicine; ATTEND Internal Medicine
DX: M48.02 Spinal stenosis, cervical region (principal); G82.50 Quadriplegia, unspecified; G99.2 Myelopathy in diseases classified elsewhere; E87.8 Other disorders of electrolyte and fluid balance, not elsewhere classified; I10 Essential (primary) hypertension; J44.9 Chronic obstructive pulmonary disease, unspecified; N39.0 Urinary tract infection, site not specified; E11.9 Type 2 diabetes mellitus without complications; G40.909 Epilepsy, unspecified, not intractable, without status epilepticus; F14.10 Cocaine abuse, uncomplicated; Z20.822 Contact with and (suspected) exposure to COVID-19; F15.10 Other stimulant abuse, uncomplicated; F17.210 Nicotine dependence, cigarettes, uncomplicated; Z71.51 Drug abuse counseling and surveillance of drug abuser; Z79.1 Long term (current) use of non-steroidal anti-inflammatories (NSAID); Z86.73 Personal history of transient ischemic attack (TIA), and cerebral infarction without residual deficits; Z79.899 Other long term (current) drug therapy; Z59.01 Sheltered homelessness
CPT/HCPCS: 36415; 71045; 72156; 72157; 72158; 80048; 80053; 80061; 80185; 80305; 81003; 82962; 83036; 84484; 85025; 86850; 86900; 87426; 93005; 93306; 94640; 97110; 97116; 97162; 99285; A9577; J0456; J0696; J1100; J1815; J2270; J7030; J7060; J7121

== ENCOUNTER 2021-06-03 21:40 | Inpatient (IN) | payer OTHER ==
[~2021-06-03] VITALS: Ht 167.6 cm; Wt 68.0 kg
[~2021-06-03 21:40] MED LIST changes: +GABA-532 MT; +PHEN100C4 MT
[2021-06-04 03:46] LABS: MEAN CORPUSCULAR HEMOGLOBIN 33.7 pg (28.0-32.0); MEAN CORPUSCULAR VOLUME 98.9 fL (81.0-99.0); MEAN PLATELET VOLUME 8.1 fl (7.4-10.4); PLATELET 357 x1000/uL (130-400); RED BLOOD CELL COUNT 4.15 mill/uL (4.2-5.4); RED CELL DISTRIBUTION WIDTH 13.1 % (11.6-14.6)
[2021-06-04 03:49] LABS: CHLORIDE 107 mEq/L (98-107)
[2021-06-04] MEDS ORDERED: KETOROLAC 30MG/ML VIAL IV STA (04:21)
[2021-06-04] MEDS ORDERED: ONDANSETRON HCL 4MG/2ML INJ IV STA (04:21)
[2021-06-04] MEDS ORDERED: SODIUM CHLORIDE 0.9% 1,000 ML IV ONE ×2 (04:30→05:30)
[2021-06-04 05:15] LABS: PLATELET ESTIMATE NORMAL
[2021-06-04] MEDS ORDERED: MORPHINE SULFATE 4 MG/ML CPJ (NOT FOR IM USE) IV STA (05:22)
[2021-06-04 05:54] LABS: ETHANOL BLOOD < 10 mg/dL
[2021-06-04] MEDS ORDERED: IOHEXOL-300 100 ML BOTTLE ONE (06:37)
[2021-06-04 07:12] LABS: *AMPHETAMINES SCREEN URINE NEGATIVE (NEGATIVE); *BARBITURATES SCREEN URINE NEGATIVE (NEGATIVE)
[2021-06-04 07:13] LABS: *BENZODIAZEPINES SCREEN URINE NEGATIVE (NEGATIVE); *COCAINE SCREEN URINE PRESUMTIVE POSITIVE (NEGATIVE); CANNABINOID URINE SCREEN NEGATIVE (NEGATIVE); METHADONE URINE SCREEN NEGATIVE (NEGATIVE); OPIATES URINE SCREEN NEGATIVE (NEGATIVE); PHENCYCLIDINE URINE SCREEN NEGATIVE (NEGATIVE)
[2021-06-04 08:13] LABS: CLARITY URINE CLOUDY (CLEAR); COLOR URINE YELLOW (YELLOW); KETONES URINE NEGATIVE (NEGATIVE); LEUKOCYTE ESTERASE URINE 1+ (NEGATIVE); NITRITE URINE NEGATIVE (NEGATIVE); OCCULT BLOOD URINE 1+ (NEGATIVE); PH URINE 7.5 (4.5-8.0); PROTEIN URINE NEGATIVE (NEGATIVE); SPECIFIC GRAVITY URINE 1.012 (1.005-1.030)
[2021-06-04] MEDS ORDERED: MORPHINE SULFATE 4 MG/ML CPJ (NOT FOR IM USE) IV ONE (12:00)
[2021-06-04 21:00] VITALS: BP 156/74
[2021-06-04] MEDS ORDERED: ACETAMINOPHEN 325MG TABLET PO PRN (23:45)
[2021-06-05] MEDS: HYDROCODONE/ACETAMINOPHEN 10/325MG TABLET PO PRN ×3 (00:46→20:54)
[2021-06-05] MEDS ORDERED: CLONIDINE 0.1MG TABLET PO PRN (03:00)
[2021-06-05] MEDS ORDERED: NALOXONE HCL 0.4MG/ML VIAL IV PRN (03:15)
[2021-06-05] MEDS: GABAPENTIN 300MG CAPSULE PO SCH ×3 (05:44→20:59)
[2021-06-05 06:40] LABS: CHLORIDE 113 mEq/L (98-107)
[2021-06-05 07:41] LABS: BASOPHILS % 0.5 % (0.0-2.0); EOSINOPHILS % 2.5 % (0.0-5.0); HEMATOCRIT. 34.7 % (36.0-48.0); HEMOGLOBIN. 11.3 g/dL (12.0-16.0); LYMPHOCYTES % 21.9 % (20.0-50.0); MEAN CORPUSCULAR HEMOGLOBIN 32.5 pg (28.0-32.0); MEAN CORPUSCULAR VOLUME 99.4 fL (81.0-99.0); MEAN PLATELET VOLUME 8.6 fl (7.4-10.4); MONOCYTES % 11.3 % (2.0-8.0); NEUTROPHILS % 63.8 % (40.0-76.0); PLATELET 323 x1000/uL (130-400); RED BLOOD CELL COUNT 3.49 mill/uL (4.2-5.4); RED CELL DISTRIBUTION WIDTH 13.1 % (11.6-14.6)
[2021-06-05 08:00] VITALS: BP 137/70
[2021-06-05] MEDS: METOPROLOL TARTRATE 50MG TABLET PO SCH ×2 (09:05→20:53)
[2021-06-05] MEDS: FAMOTIDINE 20MG TABLET PO SCH ×2 (09:05→20:53)
[2021-06-05] MEDS: AMLODIPINE 10MG TABLET PO SCH (09:06)
[2021-06-05 12:00] VITALS: BP 146/81
[2021-06-05] MEDS ORDERED: GADOTERATE MEGLUMINE 5 MMOL/10 ML VIAL IV ONE (14:50)
[2021-06-05] MEDS: CEFTRIAXONE 1,000 MG in DEXTROSE 5% WATER 50 ML IV SCH (17:09)
[2021-06-05] MEDS: ENOXAPARIN 40MG/0.4ML SYR SUBCUT SCH (17:09)
[2021-06-05 20:00] VITALS: BP 150/91
[2021-06-05] MEDS: MORPHINE SULFATE 2 MG/ML CPJ (NOT FOR IM USE) IV PRN (23:30)
[2021-06-06] VITALS: BP 117/78
[2021-06-06 04:00] VITALS: BP 153/78
[2021-06-06] MEDS: MORPHINE SULFATE 2 MG/ML CPJ (NOT FOR IM USE) IV PRN ×2 (04:46→13:12)
[2021-06-06] MEDS: GABAPENTIN 300MG CAPSULE PO SCH ×3 (05:02→22:00)
[2021-06-06 08:00] VITALS: BP 140/80
[2021-06-06 08:03] LABS: BASOPHILS % 0.9 % (0.0-2.0); EOSINOPHILS % 2.6 % (0.0-5.0); HEMATOCRIT. 36.6 % (36.0-48.0); HEMOGLOBIN. 12.2 g/dL (12.0-16.0); LYMPHOCYTES % 17.1 % (20.0-50.0); MEAN CORPUSCULAR HEMOGLOBIN 32.6 pg (28.0-32.0); MEAN PLATELET VOLUME 8.5 fl (7.4-10.4); MONOCYTES % 11.2 % (2.0-8.0); NEUTROPHILS % 68.2 % (40.0-76.0); PLATELET 308 x1000/uL (130-400); RED BLOOD CELL COUNT 3.73 mill/uL (4.2-5.4)
[2021-06-06 08:05] LABS: CHLORIDE 109 mEq/L (98-107)
[2021-06-06 08:13] LABS: PHOSPHORUS 3.7 mg/dL (2.5-4.9)
[2021-06-06 08:14] LABS: TOTAL IRON BINDING CAPACITY 258 ug/dL (250-450)
[2021-06-06 08:22] LABS: FOLIC ACID (FOLATE) SERUM 13.7 ng/mL (>5.38)
[2021-06-06] MEDS: FAMOTIDINE 20MG TABLET PO SCH ×2 (09:56→20:43)
[2021-06-06] MEDS: AMLODIPINE 10MG TABLET PO SCH (09:57)
[2021-06-06] MEDS: METOPROLOL TARTRATE 50MG TABLET PO SCH ×2 (09:57→20:43)
[2021-06-06 12:00] VITALS: BP 136/86
[2021-06-06] MEDS: ENOXAPARIN 40MG/0.4ML SYR SUBCUT SCH (13:11)
[2021-06-06 16:00] VITALS: BP 160/89
[2021-06-06] MEDS: CEFTRIAXONE 1,000 MG in DEXTROSE 5% WATER 50 ML IV SCH (16:24)
[2021-06-06 20:00] VITALS: BP 128/79
[2021-06-06] MEDS: HYDROCODONE/ACETAMINOPHEN 10/325MG TABLET PO PRN (20:43)
[2021-06-07] MEDS: GABAPENTIN 300MG CAPSULE PO SCH ×3 (06:00→22:28)
[2021-06-07 06:45] LABS: BASOPHILS % 0.9 % (0.0-2.0); EOSINOPHILS % 2.3 % (0.0-5.0); HEMATOCRIT. 39.2 % (36.0-48.0); HEMOGLOBIN. 13.1 g/dL (12.0-16.0); LYMPHOCYTES % 15.7 % (20.0-50.0); MEAN CORPUSCULAR HEMOGLOBIN 32.5 pg (28.0-32.0); MEAN CORPUSCULAR VOLUME 97.7 fL (81.0-99.0); MEAN PLATELET VOLUME 8.1 fl (7.4-10.4); MONOCYTES % 11.2 % (2.0-8.0); NEUTROPHILS % 69.9 % (40.0-76.0); PLATELET 351 x1000/uL (130-400); RED BLOOD CELL COUNT 4.01 mill/uL (4.2-5.4)
[2021-06-07 07:04] LABS: CHLORIDE 107 mEq/L (98-107)
[2021-06-07 08:00] VITALS: BP 153/84
[2021-06-07] MEDS: HYDROCODONE/ACETAMINOPHEN 10/325MG TABLET PO PRN ×3 (08:51→21:00)
[2021-06-07] MEDS: AMLODIPINE 10MG TABLET PO SCH (08:54)
[2021-06-07] MEDS: FAMOTIDINE 20MG TABLET PO SCH ×2 (08:55→20:59)
[2021-06-07] MEDS: METOPROLOL TARTRATE 50MG TABLET PO SCH ×2 (08:55→20:59)
[2021-06-07] MEDS: LEVOFLOXACIN 500MG TABLET PO SCH (11:19)
[2021-06-07 12:00] VITALS: BP 131/74
[2021-06-07] MEDS: ENOXAPARIN 40MG/0.4ML SYR SUBCUT SCH (13:10)
[2021-06-07 16:00] VITALS: BP 139/64
[2021-06-07 20:00] VITALS: BP 124/73
[2021-06-08] MEDS ORDERED: ZOLPIDEM TARTRATE 5MG TABLET PO PRN (00:30)
[2021-06-08] MEDS: GABAPENTIN 300MG CAPSULE PO SCH ×2 (06:00→13:15)
[2021-06-08 07:24] LABS: BASOPHILS % 0.8 % (0.0-2.0); EOSINOPHILS % 2.2 % (0.0-5.0); HEMATOCRIT. 38.1 % (36.0-48.0); LYMPHOCYTES % 17.2 % (20.0-50.0); MEAN CORPUSCULAR HEMOGLOBIN 33.2 pg (28.0-32.0); MEAN CORPUSCULAR VOLUME 97.5 fL (81.0-99.0); MEAN PLATELET VOLUME 8.6 fl (7.4-10.4); MONOCYTES % 14.1 % (2.0-8.0); NEUTROPHILS % 65.7 % (40.0-76.0); PLATELET 315 x1000/uL (130-400); RED BLOOD CELL COUNT 3.91 mill/uL (4.2-5.4); RED CELL DISTRIBUTION WIDTH 13.1 % (11.6-14.6)
[2021-06-08 07:41] LABS: CHLORIDE 108 mEq/L (98-107)
[2021-06-08 08:00] VITALS: BP 145/65
[2021-06-08] MEDS ORDERED: MORPHINE SULFATE 15MG TABLET SR PO SCH (09:00)
[2021-06-08] MEDS: METOPROLOL TARTRATE 50MG TABLET PO SCH (12:30)
[2021-06-08 12:31] VITALS: BP 137/83
[2021-06-08] MEDS: AMLODIPINE 10MG TABLET PO SCH (12:32)
[2021-06-08] MEDS: FAMOTIDINE 20MG TABLET PO SCH (12:32)
[2021-06-08] MEDS: LEVOFLOXACIN 500MG TABLET PO SCH (12:32)
[2021-06-08] MEDS: ENOXAPARIN 40MG/0.4ML SYR SUBCUT SCH (13:16)
== END 2021-06-08 14:05 | disposition left against medical advice (07) | DRG 463 ==
LOC: ER 21:40 → 6EST 06-04 10:03 → EDBEDREQSVC 06-04 13:38 → EDBEDREQ 06-04 19:56 → ENRESERV 06-04 20:10
PROVIDERS: ADMIT Internal Medicine; ATTEND Internal Medicine
DX: N39.0 Urinary tract infection, site not specified (principal); I11.9 Hypertensive heart disease without heart failure; K86.89 Other specified diseases of pancreas; D53.9 Nutritional anemia, unspecified; F14.90 Cocaine use, unspecified, uncomplicated; R91.1 Solitary pulmonary nodule; R59.0 Localized enlarged lymph nodes; Z20.822 Contact with and (suspected) exposure to COVID-19; Z53.29 Procedure and treatment not carried out because of patient's decision for other reasons; F17.210 Nicotine dependence, cigarettes, uncomplicated; J44.9 Chronic obstructive pulmonary disease, unspecified; M48.00 Spinal stenosis, site unspecified; Z59.01 Sheltered homelessness; Z71.51 Drug abuse counseling and surveillance of drug abuser; Z87.440 Personal history of urinary (tract) infections
CPT/HCPCS: 36415; 71045; 74177; 74183; 76700; 80048; 80053; 80076; 80305; 80320; 81003; 82607; 82728; 82746; 83540; 83550; 83605; 83735; 84100; 84145; 85025; 86301; 87804; 93005; 99285; A9577; C1893; C9803; J0696; J1650; J1885; J2270; J2405; J7030; J7060; Q9967; U0003; U0005; G0480

== ENCOUNTER 2021-07-28 17:22 | Inpatient (IN) | payer MEDICAID, OTHER ==
[~2021-07-28] VITALS: Ht 162.6 cm; Wt 67.9 kg
[2021-07-28] MEDS ORDERED: MORPHINE SULFATE 4 MG/ML CPJ (NOT FOR IM USE) IV STA (17:55)
[2021-07-28] MEDS ORDERED: PANTOPRAZOLE SODIUM 40 MG/VIAL IV STA (17:55)
[2021-07-28] MEDS ORDERED: SODIUM CHLORIDE 0.9% 1,000 ML IV ONE (18:00)
[2021-07-28 18:41] LABS: BASOPHILS % 0.7 % (0.0-2.0); EOSINOPHILS % 0.6 % (0.0-5.0); HEMATOCRIT. 43.6 % (36.0-48.0); HEMOGLOBIN. 14.6 g/dL (12.0-16.0); LYMPHOCYTES % 8.8 % (20.0-50.0); MEAN CORPUSCULAR HEMOGLOBIN 31.5 pg (28.0-32.0); MEAN CORPUSCULAR VOLUME 93.9 fL (81.0-99.0); MEAN PLATELET VOLUME 8.3 fl (7.4-10.4); MONOCYTES % 11.2 % (2.0-8.0); NEUTROPHILS % 78.7 % (40.0-76.0); PLATELET 436 x1000/uL (130-400); RED BLOOD CELL COUNT 4.65 mill/uL (4.2-5.4); RED CELL DISTRIBUTION WIDTH 13.7 % (11.6-14.6)
[2021-07-28 18:47] LABS: CHLORIDE 96 mEq/L (98-107)
[2021-07-28] MEDS ORDERED: MORPHINE SULFATE 4 MG/ML CPJ (NOT FOR IM USE) IV ONE (19:45)
[2021-07-28] MEDS ORDERED: ONDANSETRON HCL 4MG/2ML INJ IV ONE (19:45)
[2021-07-28 20:44] LABS: CLARITY URINE CLEAR (CLEAR); COLOR URINE YELLOW (YELLOW); KETONES URINE 1+ (NEGATIVE); LEUKOCYTE ESTERASE URINE 1+ (NEGATIVE); NITRITE URINE POSITIVE (NEGATIVE); OCCULT BLOOD URINE NEGATIVE (NEGATIVE); PROTEIN URINE 1+ (NEGATIVE); SPECIFIC GRAVITY URINE 1.022 (1.005-1.030)
[2021-07-28] MEDS ORDERED: CEFTRIAXONE 1 G PREMIX 50 ML IV ONE (22:00)
[2021-07-28] MEDS ORDERED: POLYETHYLENE GLYCOL 3350 (17GM) 1 DOSE PACK PO ONE (22:15)
[2021-07-28] MEDS ORDERED: NA PHOS,M-B/NA PHOS,DI-BA ENEMA 118ML PR ONE (23:00)
[2021-07-28] MEDS ORDERED: IPRATROPIUM/ALBUTEROL 0.5-3(2.5)MG/3ML NEB HHN PRN (23:15)
[2021-07-28] MEDS ORDERED: NA PHOS,M-B/NA PHOS,DI-BA ENEMA 118ML PR PRN (23:15)
[2021-07-28] MEDS ORDERED: ACETAMINOPHEN 325MG TABLET PO PRN ×2 (23:15)
[2021-07-28] MEDS ORDERED: HYDROCODONE/ACETAMINOPHEN 5/325MG TABLET PO PRN (23:15)
[2021-07-28] MEDS ORDERED: MAGNESIUM/ALUMINUM HYDROXIDE/SIMETHICONE 30ML UDC PO PRN (23:15)
[2021-07-28] MEDS ORDERED: ONDANSETRON HCL 4MG/2ML INJ IV PRN (23:15)
[2021-07-28] MEDS ORDERED: NALOXONE HCL 0.4 MG/ML 1ML VIAL IV PRN (23:45)
[2021-07-28 23:53] LABS: CHLORIDE 101 mEq/L (98-107)
[2021-07-29] MEDS: SODIUM CHLORIDE 0.9% 1,000 ML IV SCH ×2 (00:08→16:51)
[2021-07-29] MEDS: MORPHINE SULFATE 2 MG/ML CPJ (NOT FOR IM USE) IV PRN ×5 (02:11→20:16)
[2021-07-29 05:33] LABS: BASOPHILS % 0.2 % (0.0-2.0); EOSINOPHILS % 0.5 % (0.0-5.0); HEMATOCRIT. 41.2 % (36.0-48.0); HEMOGLOBIN. 13.5 g/dL (12.0-16.0); LYMPHOCYTES % 10.7 % (20.0-50.0); MEAN CORPUSCULAR HEMOGLOBIN 31.2 pg (28.0-32.0); MEAN CORPUSCULAR VOLUME 95.3 fL (81.0-99.0); MEAN PLATELET VOLUME 8.2 fl (7.4-10.4); MONOCYTES % 11.6 % (2.0-8.0); PLATELET 349 x1000/uL (130-400); RED BLOOD CELL COUNT 4.32 mill/uL (4.2-5.4); RED CELL DISTRIBUTION WIDTH 13.9 % (11.6-14.6)
[2021-07-29 05:49] LABS: CREATINE KINASE 174 IU/L (26-192)
[2021-07-29 05:50] LABS: CREATINE KINASE MB FRACTION < 1.0 ng/mL (0.5-3.6)
[2021-07-29] MEDS: ENOXAPARIN 40MG/0.4ML SYR SUBCUT SCH (08:48)
[2021-07-29 10:07] LABS: *AMPHETAMINES SCREEN URINE NEGATIVE (NEGATIVE); PHENCYCLIDINE URINE SCREEN NEGATIVE (NEGATIVE)
[2021-07-29 10:08] LABS: *BARBITURATES SCREEN URINE NEGATIVE (NEGATIVE); *BENZODIAZEPINES SCREEN URINE NEGATIVE (NEGATIVE); *COCAINE SCREEN URINE PRESUMTIVE POSITIVE (NEGATIVE); CANNABINOID URINE SCREEN NEGATIVE (NEGATIVE); METHADONE URINE SCREEN NEGATIVE (NEGATIVE); OPIATES URINE SCREEN PRESUMTIVE POSITIVE (NEGATIVE)
[2021-07-29] MEDS: DOCUSATE SODIUM 100MG CAPSULE PO PRN (17:15)
[2021-07-29 17:21] LABS: CREATINE KINASE 43 IU/L (26-192)
[2021-07-29 17:22] LABS: CREATINE KINASE MB FRACTION < 1.0 ng/mL (0.5-3.6)
[2021-07-29] MEDS: METOCLOPRAMIDE HCL 10MG/2ML VIAL IV SCH (18:51)
[2021-07-29] MEDS ORDERED: CEFTRIAXONE SODIUM 1 G/VIAL ONE (21:09)
[2021-07-29] MEDS ORDERED: CEFTRIAXONE 1,000 MG in DEXTROSE 5% WATER 50 ML IV SCH (22:00)
[2021-07-30] VITALS (7 sets, daily range): BP systolic 105–181; BP diastolic 68–96
[2021-07-30] MEDS: MORPHINE SULFATE 2 MG/ML CPJ (NOT FOR IM USE) IV PRN ×6 (00:34→22:45)
[2021-07-30] MEDS: METOCLOPRAMIDE HCL 10MG/2ML VIAL IV SCH ×4 (00:35→17:32)
[2021-07-30] MEDS ORDERED: INFLUENZA VACCINE 05/PF 0.5 ML SYRINGE IM ONE (04:00)
[2021-07-30 07:00] LABS: BASOPHILS % 0.5 % (0.0-2.0); EOSINOPHILS % 0.5 % (0.0-5.0); HEMATOCRIT. 34.9 % (36.0-48.0); HEMOGLOBIN. 11.8 g/dL (12.0-16.0); LYMPHOCYTES % 9.8 % (20.0-50.0); MEAN CORPUSCULAR HEMOGLOBIN 31.7 pg (28.0-32.0); MEAN CORPUSCULAR VOLUME 93.7 fL (81.0-99.0); MEAN PLATELET VOLUME 8.2 fl (7.4-10.4); MONOCYTES % 12.6 % (2.0-8.0); NEUTROPHILS % 76.6 % (40.0-76.0); PLATELET 371 x1000/uL (130-400); RED BLOOD CELL COUNT 3.73 mill/uL (4.2-5.4); RED CELL DISTRIBUTION WIDTH 13.7 % (11.6-14.6)
[2021-07-30] MEDS: SODIUM CHLORIDE 0.9% 1,000 ML IV SCH (09:43)
[2021-07-30] MEDS: ENOXAPARIN 40MG/0.4ML SYR SUBCUT SCH (09:43)
[2021-07-30] MEDS ORDERED: BISACODYL 10MG SUPP PR PRN (16:45)
[2021-07-30] MEDS: DOCUSATE SODIUM 100MG CAPSULE PO PRN (17:32)
[2021-07-30] MEDS ORDERED: *PATIENT'S OWN MEDICATION STORAGE XX SCH (17:45)
[2021-07-30] MEDS: CLONIDINE 0.1MG TABLET PO PRN (18:31)
[2021-07-30] MEDS: CEFTRIAXONE 1,000 MG in DEXTROSE 5% WATER 50 ML IV SCH (23:47)
[2021-07-31] VITALS: BP 162/85
[2021-07-31] MEDS: MORPHINE SULFATE 2 MG/ML CPJ (NOT FOR IM USE) IV PRN ×2 (03:49→21:10)
[2021-07-31] MEDS: SODIUM CHLORIDE 0.9% 1,000 ML IV SCH ×2 (05:29→16:55)
[2021-07-31] MEDS: METOCLOPRAMIDE HCL 10MG/2ML VIAL IV SCH ×3 (06:00→17:24)
[2021-07-31 08:00] VITALS: BP 140/90
[2021-07-31 10:31] LABS: CHLORIDE 107 mEq/L (98-107)
[2021-07-31] MEDS ORDERED: LACTULOSE 20G/30ML UDC PO PRN (10:45)
[2021-07-31] MEDS: HYDROCODONE/ACETAMINOPHEN 5/325MG TABLET PO PRN (11:07)
[2021-07-31] MEDS: DOCUSATE SODIUM 100MG CAPSULE PO PRN (11:07)
[2021-07-31] MEDS: ENOXAPARIN 40MG/0.4ML SYR SUBCUT SCH (11:07)
[2021-07-31] MEDS ORDERED: POLYETHYLENE GLYCOL 3350 (17GM) 1 DOSE PACK PO SCH (11:15)
[2021-07-31 12:00] VITALS: BP 143/76
[2021-07-31] MEDS: LACTULOSE 20G/30ML UDC PO SCH ×2 (12:46→16:53)
[2021-07-31] MEDS ORDERED: BISACODYL 10MG SUPP PR SCH (14:30)
[2021-07-31 15:32] LABS: BASOPHILS % 0.7 % (0.0-2.0); EOSINOPHILS % 0.7 % (0.0-5.0); HEMATOCRIT. 33.4 % (36.0-48.0); HEMOGLOBIN. 11.2 g/dL (12.0-16.0); LYMPHOCYTES % 9.5 % (20.0-50.0); MEAN CORPUSCULAR HEMOGLOBIN 31.5 pg (28.0-32.0); MEAN PLATELET VOLUME 8.3 fl (7.4-10.4); MONOCYTES % 7.4 % (2.0-8.0); NEUTROPHILS % 81.7 % (40.0-76.0); PLATELET 336 x1000/uL (130-400); RED BLOOD CELL COUNT 3.55 mill/uL (4.2-5.4); RED CELL DISTRIBUTION WIDTH 13.8 % (11.6-14.6)
[2021-07-31] MEDS: SORBITOL 70% SOLN 30ML PO SCH ×3 (15:43→22:12)
[2021-07-31] MEDS: CLONIDINE 0.1MG TABLET PO PRN (16:55)
[2021-07-31] MEDS ORDERED: DOCUSATE SODIUM 250MG CAPSULE PO SCH (17:00)
[2021-07-31 20:00] VITALS: BP 160/88
[2021-07-31] MEDS: CEFTRIAXONE 1,000 MG in DEXTROSE 5% WATER 50 ML IV SCH (22:03)
[2021-08-01] VITALS: BP 136/70
[2021-08-01] MEDS: METOCLOPRAMIDE HCL 10MG/2ML VIAL IV SCH ×2 (00:08→06:00)
[2021-08-01] MEDS: HYDROCODONE/ACETAMINOPHEN 5/325MG TABLET PO PRN (00:16)
[2021-08-01] MEDS: SORBITOL 70% SOLN 30ML PO SCH ×2 (00:18→06:30)
[2021-08-01 04:00] VITALS: BP 133/60
[2021-08-01] MEDS: MORPHINE SULFATE 2 MG/ML CPJ (NOT FOR IM USE) IV PRN (04:34)
[2021-08-01 07:18] LABS: BASOPHILS % 0.6 % (0.0-2.0); EOSINOPHILS % 0.9 % (0.0-5.0); HEMATOCRIT. 30.9 % (36.0-48.0); HEMOGLOBIN. 10.4 g/dL (12.0-16.0); LYMPHOCYTES % 9.2 % (20.0-50.0); MEAN CORPUSCULAR HEMOGLOBIN 31.4 pg (28.0-32.0); MEAN CORPUSCULAR VOLUME 93.7 fL (81.0-99.0); MEAN PLATELET VOLUME 8.3 fl (7.4-10.4); MONOCYTES % 12.1 % (2.0-8.0); NEUTROPHILS % 77.2 % (40.0-76.0); PLATELET 341 x1000/uL (130-400); RED CELL DISTRIBUTION WIDTH 13.7 % (11.6-14.6)
[2021-08-01 07:26] LABS: CHLORIDE 107 mEq/L (98-107)
[2021-08-01 08:00] VITALS: BP 138/66
[2021-08-01] MEDS ORDERED: MORPHINE SULFATE 2 MG/ML CPJ (NOT FOR IM USE) IV PRN (09:30)
[2021-08-01] MEDS ORDERED: HYDROCODONE/ACETAMINOPHEN 10/325MG TABLET PO PRN (09:30)
[2021-08-01] MEDS ORDERED: TRAMADOL 50MG TABLET PO PRN (09:30)
== END 2021-08-01 09:45 | disposition left against medical advice (07) | DRG 281 ==
LOC: ER 17:22 → MICUSO 22:55 → EDBEDREQTM 22:58 → EDBEDREQ 22:58 → 6EST 07-29 22:18
PROVIDERS: ADMIT Internal Medicine; ATTEND Internal Medicine
DX: C25.9 Malignant neoplasm of pancreas, unspecified (principal); C78.00 Secondary malignant neoplasm of unspecified lung; C78.7 Secondary malignant neoplasm of liver and intrahepatic bile duct; K56.7 Ileus, unspecified; N13.6 Pyonephrosis; D72.821 Monocytosis (symptomatic); K56.41 Fecal impaction; F10.10 Alcohol abuse, uncomplicated; F14.90 Cocaine use, unspecified, uncomplicated; R74.01 Elevation of levels of liver transaminase levels; I10 Essential (primary) hypertension; Y90.9 Presence of alcohol in blood, level not specified; J44.9 Chronic obstructive pulmonary disease, unspecified; M48.00 Spinal stenosis, site unspecified; Z20.822 Contact with and (suspected) exposure to COVID-19; R74.8 Abnormal levels of other serum enzymes; Z79.1 Long term (current) use of non-steroidal anti-inflammatories (NSAID); Z79.899 Other long term (current) drug therapy; Z59.00 Homelessness unspecified; Z79.51 Long term (current) use of inhaled steroids; Z72.0 Tobacco use; G89.3 Neoplasm related pain (acute) (chronic)
CPT/HCPCS: 36415; 74018; 74176; 76770; 78582; 80048; 80053; 80305; 81003; 82550; 82553; 83735; 84484; 85025; 85379; 87426; 90686; 93005; 93970; 97162; 99285; A9558; C9113; J0696; J1650; J2270; J2405; J2765; J7030; J7060; A4315